=== PATIENT | male | born 1935 | race Caucasian/White ===

== ENCOUNTER 2023-04-23 10:42 | Emergency (ER) | payer MEDICARE, MEDICAID, SELFPAY ==
[2023-04-23] VITALS (11 sets, daily range): BP systolic 106–173; BP diastolic 53–94; PULSE 53–74; RESP 15–18; TEMP 36.4; O2SAT 95–98; BMI 35.9
--- NOTE | 2023-04-23 10:44 | ECG_ITS ---
APPROVED REPORT Exam: Resting ECG HR:66 bpm ECG Measurements Heart Rate 66 AXES IL 193 P 66 QRSd 100 QRS -26 QT 396 T -10 QTc 409 Conclusion SINUS RHYTHM BORDERLINE LEFT AXIS DEVIATION [QRS AXIS < -20] BORDERLINE ECG UNCONFIRMED REPORT Electronically signed by : Morgan Lisa MD 04/24/2023 08:24:23
--- NOTE | 2023-04-23 10:57 | CT_ITS ---
PROCEDURE INFORMATION: Exam: CTA Chest With Contrast Exam date and time: 04/23/2023 1:02 PM Age: 87 years old Clinical indication: Pain; Chest pressure; Additional info: Tearing chest pain to abd TECHNIQUE: Imaging protocol: Computed tomographic angiography of the chest with contrast. Exam focused on the arteries. 3D rendering (Not supervised by radiologist): MIP and/or 3D reconstructed images were created by the technologist. Radiation optimization: All CT scans at this facility use at least one of these dose optimization techniques: automated exposure control; mA and/or kV adjustment per patient size (includes targeted exams where dose is matched to clinical indication); or iterative reconstruction. Contrast material: ISOVUE; Contrast volume: 100 ml; Contrast route: INTRAVENOUS (IV); REPORTING DATA: Count of CT and Cardiac NM exams in prior 12 months: This patient has received 0 known CTs and 0 known cardiac nuclear medicine studies in the 12 months prior to the current study. COMPARISON: CT ANGIO ABDOMEN PELVIS 04/23/2023 1:02 PM FINDINGS: Pulmonary arteries: There is suboptimal opacification of pulmonary arteries due to contrast bolus timing. Aorta: Regions of atherosclerotic vascular calcification involving the aortic arch. 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 Lungs: Bibasilar atelectasis versus parenchymal scarring. Pleural spaces: Unremarkable. No pneumothorax. No pleural effusion. Heart: Unremarkable. No cardiomegaly. No pericardial effusion. Coronary arteries: Coronary artery calcification Lymph nodes: Unremarkable. No enlarged lymph nodes. Bones/joints: Thoracic spondylosis. Soft tissues: Unremarkable. IMPRESSION: 1. 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 2. No large or central pulmonary embolus. Evaluation of the peripheral pulmonary arteries is limited. 3. Bibasilar atelectasis versus parenchymal scarring.
--- NOTE | 2023-04-23 10:57 | CT_ITS ---
PROCEDURE INFORMATION: Exam: CTA Abdomen and Pelvis With Contrast Exam date and time: 04/23/2023 1:02 PM Age: 87 years old Clinical indication: Abdominal pain; Generalized; Additional info: Tearing pain abdomen suprapubic TECHNIQUE: Imaging protocol: Computed tomographic angiography of the abdomen and pelvis with contrast. Exam focused on the arteries. 3D rendering (Not supervised by radiologist): MIP and/or 3D reconstructed images were created by the technologist. Radiation optimization: All CT scans at this facility use at least one of these dose optimization techniques: automated exposure control; mA and/or kV adjustment per patient size (includes targeted exams where dose is matched to clinical indication); or iterative reconstruction. Contrast material: ISOVUE; Contrast volume: 100 ml; Contrast route: INTRAVENOUS (IV); REPORTING DATA: Count of CT and Cardiac NM exams in prior 12 months: This patient has received 0 known CTs and 0 known cardiac nuclear medicine studies in the 12 months prior to the current study. COMPARISON: CT ANGIO CHEST 04/23/2023 1:02 PM FINDINGS: Aorta: Scattered regions of atherosclerotic vascular calcification within the abdominal aorta and common iliac arteries. Celiac trunk and mesenteric arteries: No occlusion or significant stenosis. Renal arteries: No occlusion or significant stenosis. Right iliac arteries: No occlusion or significant stenosis. Left iliac arteries: No occlusion or significant stenosis. Liver: No mass. Gallbladder and bile ducts: Gallbladder unremarkable Pancreas: Unremarkable. No mass. No ductal dilation. Spleen: The spleen is unremarkable. Adrenal glands: Adrenal glands unremarkable. Kidneys and ureters: Bilateral renal cysts left-sided peripelvic cyst versus extrarenal pelvis Stomach and bowel: Colonic diverticulosis. No evidence of diverticulitis. Moderate stool burden Appendix: Appendix unremarkable Intraperitoneal space: Unremarkable. No free air. No significant fluid collection. Lymph nodes: Unremarkable. No enlarged lymph nodes. Urinary bladder: Unremarkable. No mass. Reproductive: Unremarkable as visualized. Bones/joints: Lumbar spondylosis. Soft tissues: Pancreas unremarkable Fat filled umbilical hernia. Fat filled inguinal hernias. IMPRESSION: No evidence of acute abnormality.
--- NOTE | 2023-04-23 10:59 | HMH.EDGENADL ---
Discharge Plan Disposition Patient Disposition: Home, Self-Care Prescriptions Prescriptions: New cefdinir 300 mg capsule 300 mg PO BID 10 Days Qty: 20 0RF Referrals Follow up/Referrals: Provider,Referral, MD [Primary Care Provider] - See instructions Activity Restrictions/Add. Instructions Additional Instructions/Restrictions: At this time it was felt you are safe to be discharged home. If new or worsening symptoms please do not hesitate to return the emergency department. Please follow-up with your family doctor for continued surveillance of your dilated aorta (large heart vessel). Please take antibiotics as prescribed. Clinical Impressions Clinical Impression: Constipation, Acute UTI, Chest pain, Aortic aneurysm Discharge ED Provider: Teodoro Savage General Adult HPI General Chief complaint: Weakness Stated complaint: weakness Time Seen by Provider: 04/23/23 10:50 Mode of Arrival: EMS Source of Information: EMS Limitations: No Limitations Description of Symptoms (Recalled from ER Triage Doc. by RN): 87 yo M presents to ED from [facility]. EMS staff reports trouble urinating, weakness and pain all over. 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 Patient states that for the last 2 weeks he has had suprapubic abdominal pain that is tearing in nature that has since ascended into his chest. There is associated dysuria. Due to persistent symptoms he presents here for continued evaluation. Patient also was diagnosed with shingles approximately 1 month ago for which she has been following with ophthalmology and taken medicines. Related Data Previous Rx's Medication Instructions Recorded cefdinir 300 mg capsule 300 mg PO BID 10 days #20 caps 04/23/23 Allergies Allergy/AdvReac Type Severity Reaction Status Date / Time No Known Allergies Allergy Verified 04/23/23 11:15 [facility] Disclaimer: The information contained in this section may have been updated after the patient was seen, as this information can be updated by other users. Social History Smoking Status: Former smoker alcohol intake: never current occupational status: other Travel in the last 8 weeks: None ROS Obtained: Yes Systems reviewed as appropriate & no additional complaints except as documented Physical Exam General General appearance: alert and in no apparent distress Head Head exam: atraumatic and normocephalic Eye Eye exam: Present PERRL, EOMI and conjunctival injection (Left) ENT ENT exam: Present mucous membranes moist Neck Neck exam: Present normal inspection Chest Chest inspection: Present normal inspection and symmetric chest wall rise Respiratory Respiratory exam: Present normal lung sounds bilaterally; Absent respiratory distress Cardiovascular Cardiovascular exam: Present regular rate and normal rhythm Abdominal Exam Abdominal exam: Present soft and tenderness (Suprapubic) Extremities Exam Extremities exam: Present normal inspection Neurological Exam Neurological exam: Present alert and other (5 out of 5 strength bilateral upper and lower extremities.) Psychiatric Psychiatric exam: Present normal affect Skin Skin exam: Present warm and dry Medical Decision Making Trevor Inquiry Pt receiving controlled substance: No Vital Signs: 04/23/23 10:43 04/23/23 11:00 04/23/23 11:31 Temperature 97.6 F Temperature Source Oral Pulse Rate 68 61 Pulse Rate [Left Radial] 66 Respiratory Rate 17 18 Blood Pressure 106/57 L 121/70 Blood Pressure [Right Arm] 108/53 L Blood Pressure Mean 67 Blood Pressure Mean [Right Arm] 71 02 Sat by Pulse Oximetry 95 95 95 Oxygen Delivery Method Room Air 04/23/23 12:05 04/23/23 13:32 04/23/23 14:02
[2023-04-23 11:05] LABS: Microscopic, Urine URINE MICROSCOPIC (MICROSCOPIC)
[2023-04-23 11:06] LABS: Appearance,Urine CLEAR (Clear); Bilirubin,Urine Negative (Negative); Blood, Urine 3+ (Negative); Color,Urine YELLOW (Yellow); Glucose,Urine (UA) Negative (Negative); Ketones,Urine Negative (Negative); Leukocyte Esterase,Urine 1+ (Negative); Nitrate,Urine POSITIVE (Negative); Protein,Urine TRACE (Negative); Specific Gravity, Urine 1.015 (1.005-1.030); Urobilinogen,Urine 0.2 EU/dl (0.2)
[2023-04-23 11:17] LABS: Basophils % 0.4 % (0.1-2.0); Eosinophils # 0.3 K/mm3 (0.0-0.4); Eosinophils % 3.2 % (0.1-12.0); Hemoglobin 14.1 g/dL (14.1-18.0); Lymphocytes # 1.7 K/mm3 (0.7-4.5); Lymphocytes % 19.6 % (10-50); Mean Corpuscular HGB Conc 32.7 g/dL (31.8-35.4); Mean Corpuscular Hemoglobin 32.4 pg (27.0-31.2); Mean Corpuscular Volume 99.2 fl (80-94); Mean Platelet Volume 7.7 fl (7.4-10.4); Monocytes # 0.4 K/mm3 (0.1-1.0); Monocytes % 4.6 % (1.7-9.3); Neutrophils # 6.2 K/mm3 (1.8-7.8); Neutrophils % 72.1 % (37.0-80.0); Platelet Count 184 K/mm3 (142-424); Red Blood Count 4.34 M/mm3 (4.60-6.20); Red Cell Distribution Width 13.3 % (11.5-17.5); White Blood Count 8.5 K/mm3 (4.8-10.8)
[2023-04-23 11:18] LABS: Bacteria,Urine 1+ /lpf; Squamous Epithelial Cell,Urine Occasional #/hpf (0-5)
[2023-04-23 11:25] LABS: Chloride 107 mmol/L (98-107); Potassium 4.5 mmoL/L (3.5-5.1); Sodium 140 mmol/L (136-145)
[2023-04-23 11:28] LABS: Alanine Aminotransferase 26 U/L (12-78); Albumin Level 3.8 g/dl (3.5-5.0); Albumin/Globulin Ratio 1.2 (1.1-1.8); Alkaline Phosphatase 89 U/L (38-126); Anion Gap 8.5 mEq/L (5-15); Aspartate Amino Transferase 27 U/L (17-59); Bilirubin,Total 0.6 mg/dl (0.2-1.3); Blood Urea Nitrogen 41 mg/dl (9-20); Calcium 9.1 mg/dl (8.4-10.2); Carbon Dioxide 29 mmol/L (22.0-30.0); Creatinine Clearance Estimated 50 mL/min (50-200); Estimated Glomerular Filt Rate 38 ml/min (>60); GFR (African American) 46 ML/MIN (>60); Globulin 3.1 g/dL (1.3-3.2); Glucose 176 mg/dl (74-100); Total Protein,Serum 6.9 g/dl (6.3-8.2)
[2023-04-23 11:29] LABS: Lipase 243 U/L (23-300); Magnesium 2.1 mg/dl (1.6-2.3)
[2023-04-23 11:42] LABS: Troponin I 0.01 ng/ml (0.00-0.034)
[2023-04-23 12:40] LABS: Coronavirus 19, PCR Not Detected (NotDetected); Influenza A, PCR Not Detected (NotDetected); Influenza B, PCR Not Detected (NotDetected)
--- NOTE | 2023-04-23 13:00 | PC.NURSE ---
Pt to CT
--- NOTE | 2023-04-23 13:02 | PC.NURSE ---
Assumed care of patient at this time.
--- NOTE | 2023-04-23 13:24 | PC.NURSE ---
Patient back from CT. Rounded on patient with Anjum FRENCH. Patient in soiled brief and linens. Cleaned patient; new linens and brief applied as well as a male purwick. Patient had a large piece of stool at the rectum that was removed and tatianna area cleaned. Patient stated he has been constipated and has been trying to have a BM for 3 days with no relief. Patient states he feels much better now. Patient readjusted in the bed for comfort.
--- NOTE | 2023-04-23 13:34 | PC.NURSE ---
PT WAS GIVEN A BED BATH ASSISTED BY DARION(RN)WHICH SHE HAD TO DIG SOME BM FROM PT BUTT WERE HE WAS CONSTIPATED PT STATED TO US HE TRIED TO USE RESTROOM FOR THREE DAYS, SHEETS CHANGED NEW DRAW SHEET PLACE WITH CHUCKS AND BRIEF. A MALE PUREWICK WAS PLACED BC PT IS INCONTINENT WORKING GREAT AT THIS TIME, NEW GOWN PUT ON AND WARM BLANKET WAS GIVEN NO OTHER COMPLAINTS AT THIS TIME,CALL LIGHT AT BS
--- NOTE | 2023-04-23 14:08 | PC.NURSE ---
Rounded on patient; call light within reach. Obtained 2nd Troponin and sent to lab
[2023-04-23 14:38] LABS: Troponin I < 0.01 ng/ml (0.00-0.034)
--- NOTE | 2023-04-23 14:57 | PC.NURSE ---
Rounded on patient; call light within reach of patient.
--- NOTE | 2023-04-23 15:30 | PC.NURSE ---
Pt to CT
== END 2023-04-23 16:45 | disposition home or self-care (01) ==
PROVIDERS: Emergency Provider Emergency Medicine
DX: R10.30 Lower abdominal pain, unspecified (principal); N39.0 Urinary tract infection, site not specified; B96.4 Proteus (mirabilis) (morganii) as the cause of diseases classified elsewhere; R07.9 Chest pain, unspecified; K59.00 Constipation, unspecified; I71.9 Aortic aneurysm of unspecified site, without rupture; I25.10 Atherosclerotic heart disease of native coronary artery without angina pectoris; E11.9 Type 2 diabetes mellitus without complications; R53.1 Weakness; I11.9 Hypertensive heart disease without heart failure
CPT/HCPCS: 71275; 74174; 80053; 81001; 83690; 83735; 84484; 85025; 87086; 87636; 93005; 96365; 99285; J0696; Q9967

== ENCOUNTER 2023-12-11 14:14 | Observation (INO) | payer MEDICARE, MEDICAID, SELFPAY ==
[2023-12-11] VITALS (10 sets, daily range): BP systolic 99–108; BP diastolic 48–68; PULSE 55–69; RESP 15–19; TEMP 36.4–36.7; O2SAT 92–98; BMI 46.0; BMI 30.5
--- NOTE | 2023-12-11 14:00 | ECG_ITS ---
APPROVED REPORT Exam: Resting ECG HR:62 bpm ECG Measurements Heart Rate 62 AXES ID 197 P 55 QRSd 100 QRS -20 QT 433 T -37 QTc 439 Conclusion SINUS RHYTHM WITH OCCASIONAL SUPRAVENTRICULAR PREMATURE COMPLEXES MODERATE VOLTAGE CRITERIA FOR LVH Inferior STTW changes are old ABNORMAL ECG UNCONFIRMED REPORT Electronically signed by : Morgan Lisa MD 12/13/2023 07:11:39
--- NOTE | 2023-12-11 14:22 | PC.NURSE ---
IV 20 right fa, labs sent.
--- NOTE | 2023-12-11 14:27 | ED_ITS ---
Discharge Plan Disposition Patient Disposition: Admitted Condition: Fair Clinical Impressions Clinical Impression: Acute nontraumatic kidney injury Acute pancreatitis Qualifiers: Pancreatitis type: unspecified pancreatitis type Acute pancreatitis complication: unspecified Qualified Code(s): K85.90 - Acute pancreatitis without necrosis or infection, unspecified Discharge ED Provider: Teodoro Savage General Adult HPI <ESTEFANI Paredes - Last Filed: 12/11/23 17:17> General Chief complaint: Chest Pain Stated complaint: chest pain Time Seen by Provider: 12/11/23 14:26 History of Present Illness HPI narrative: Patient presents for evaluation of chest pain. Patient is a difficult historian and I am unsure of what his neurologic baseline is but apparently has frequent bouts of chest pain and usually treated with nitroglycerin however [facility]. Patient is unable to provide much more history and whether or not he is having chest pain currently. He denies headache fever chills hemoptysis hematochezia melena nausea vomiting diarrhea.. Related Data Previous Rx's Medication Instructions Recorded cefdinir 300 mg capsule 300 mg PO BID 10 days #20 caps 04/23/23 Allergies Allergy/AdvReac Type Severity Reaction Status Date / Time No Known Allergies Allergy Verified 04/23/23 11:15 [facility] <ESTEFANI Paredes - Last Filed: 12/11/23 17:17> [facility] Disclaimer: The information contained in this section may have been updated after the patient was seen, as this information can be updated by other users. Social History (Updated 04/23/23 @ 15:17 by Teodoro Savage MD) Smoking Status: Former smoker alcohol intake: never current occupational status: other Travel in the last 8 weeks: None <ESTEFANI Paredes - Last Filed: 12/11/23 17:17> ROS Obtained: Yes Systems reviewed as appropriate & no additional complaints except as documented Physical Exam <ESTEFANI Paredes - Last Filed: 12/11/23 17:17> General General appearance: in no apparent distress Head Head exam: atraumatic and normal inspection Eye Eye exam: Absent normal appearance (Patient has eyelid conjunctivitis of the left eye but not of the bulbar Activa) ENT ENT exam: Present normal exam, normal oropharynx and mucous membranes moist Neck Neck exam: Present normal inspection; Absent tenderness Chest Chest inspection: Present normal inspection and symmetric chest wall rise; Absent tenderness Respiratory Respiratory exam: Present normal lung sounds bilaterally; Absent respiratory distress, wheezes, stridor or accessory muscle use Cardiovascular Cardiovascular exam: Present regular rate, normal rhythm and normal heart sounds Abdominal Exam Abdominal exam: Present soft (Obese) and normal bowel sounds; Absent tenderness, guarding, rebound or rigidity Extremities Exam Extremities exam: Present normal inspection Back Exam Back exam: Present normal inspection Neurological Exam Neurological exam: Absent alert (Patient is somnolent but arousable but unable to provide a coherent history other than stating that he has chest pain) or oriented X3 (Do not know what the patient's functional baseline is but he is not oriented to place or circumstance and oriented only to self currently) Skin Skin exam: Present warm, dry and normal color Medical Decision Making <ESTEFANI Paredes - Last Filed: 12/11/23 17:17> Medical Records Medical records reviewed: Yes I reviewed the patient's medical records. Trevor Inquiry Pt receiving controlled substance: No Vital Signs: 12/11/23 14:08 12/11/23 14:14 12/11/23 14:30 Temperature 98.0 F Temperature Source Oral Pulse Rate 61 60 Pulse Rate [Apical] 69 Respiratory Rate 17 18 17 Blood Pressure 105/56 L 104/63 L Blood Pressure [Left Arm] 108/68 L Blood Pressure Mean [Left Arm] 81 Blood Pressure Source [Left Arm] Automatic Cuff Blood Pressure Position [Left Arm] Sitting 02 Sat by Pulse Oximetry 96 95 95 Oxygen Delivery Method Room Air Room Air Room Air 12/11/23 15:00 12/11/23 15:30 12/11/23 17:15 Temperature Temperature Source Pulse Rate 56 L 55 L 62 Pulse Rate [Apical] Respiratory Rate 15 18 16 Blood Pressure 103/62 L 108/61 L Blood Pressure [Left Arm] Blood Pressure Mean [Left Arm] Blood Pressure Source [Left Arm] Blood Pressure Position [Left Arm] 02 Sat by Pulse Oximetry 98 92 L 95 Oxygen Delivery Method Room Air Room Air Lab Data Lab results reviewed: Yes I reviewed the patient's lab results. Lab Results 12/11/23 14:08: WBC 9.6, RBC 3.89 L, Hgb 12.9 L, Hct 38.5 L, MCV 99.1 H, MCH 33.2 H, MCHC 33.4, RDW 13.9, Plt Count 275, MPV 8.2, Neut % (Auto) 78.4, Lymph % (Auto) 14.4, [place] % (Auto) 3.9, Eos % (Auto) 2.7, Baso % (Auto) 0.5, Neut # (Auto) 7.6, Lymph # (Auto) 1.4, [place] # (Auto) 0.4, Eos # (Auto) 0.3, Baso # (Auto) 0.1, PT 10.7, INR 0.95, Sodium 136, Potassium 4.3, Chloride 98, Carbon Dioxide 29, Anion Gap 13.3, BUN 95 H, Creatinine 2.60 H, Estimated Creat Clear 18, Estimated GFR 23 L, Est GFR ( Amer) 28 L, Glucose 163 H, Calcium 9.8, Magnesium 2.1, Total Bilirubin 0.5, AST 22, ALT 16, Alkaline Phosphatase 87, Troponin I < 0.01, NT-Pro-B Natriuret Pep 806 H, Total Protein 7.8, Albumin 4.0, Globulin 3.8 H, Albumin/Globulin Ratio 1.1, Lipase 417 H 12/11/23 14:08 12/11/23 14:08 Orders (Tests/Meds): ED MEDICATIONS Discontinued Medications Generic Name Dose Route Start Last Admin Trade Name Freq PRN Reason Stop Dose Admin Acetaminophen 1,000 mg 12/11/23 14:31 12/11/23 15:08 Acetaminophen 1,000mg/100ml Vial IV 12/11/23 14:32 1,000 mg ONCE ONE Administration Belladonna Alkaloids 60 ml 12/11/23 14:31 12/11/23 15:08 Belladonna Alkaloids 60 Ml Ml PO 12/11/23 14:32 60 ml ONCE ONE Administration Sodium Chloride 500 mls @ 999 mls/hr 12/11/23 14:31 12/11/23 15:09 Sod Chlor 0.9% 1000ml Bag IV 12/11/23 15:01 999 mls/hr .Q31M ONE Administration Ondansetron HCl 4 mg 12/11/23 14:31 12/11/23 15:08 Ondansetron 4mg/2ml Vial IV 12/11/23 14:32 4 mg ONCE ONE Administration ORDERS Category Date Time Status CT abdomen pelvis wo con Stat Cat Scan 12/11/23 14:[address] chest wo con Stat Cat Scan 12/11/23 14:31 Completed BNP [NT Pro Brain Natriuretic Pep.] Stat Lab 12/11/23 14:08 Completed CBC w/Auto Diff [Complete Blood Count Auto Diff] Stat Lab 12/11/23 14:08 Completed CMP [Comprehensive Metabolic Panel] Stat Lab 12/11/23 14:08 Completed INR [Prothrombin Time INR] Stat Lab 12/11/23 14:08 Completed Lipase Stat Lab 12/11/23 14:08 Completed Magnesium Stat Lab 12/11/23 14:08 Completed Trop I [Troponin I] Stat Lab 12/11/23 14:08 Completed Troponin I Q3H Lab 12/11/23 17:45 Ordered Troponin I Q3H Lab 12/11/23 20:45 Ordered UA [Urinalysis and Microscopic] Stat Lab 12/11/23 14:31 Ordered HEART Score History (anamnesis): Slightly suspicious ECG: Non-specific disturbance Age: >65 years Risk factors: Atherosclerosis history Troponin: </= normal limit HEART Score: 5 Medical Decision Narrative: In summary patient is a 88-year-old male who presents to the emergency department for evaluation of chest pain/epigastric pain. Patient is hemodynamically stable with a blood pressure of 108/68 with a pulse of 69 sat of 95% breathing 18 times a minute upon arrival, afebrile. Physical exam shows a somnolent but arousable but not oriented 88-year-old gentleman who otherwise does not appear to be in acute distress. He breath sounds are normal heart sounds are normal patient points to the epigastrium where his chest pain is located but he has no pain on palpation of same.. Differential diagnosis includes ACS versus gastritis versus ulcer versus pancreatitis versus constipation etc. Initial workup will be conducted with hematologic labs CT scan chest abdomen pelvis, urinalysis. Initial interventions include crystalloid bolus Tylenol GI cocktail. Initial workup reviewed by me shows that he has an elevated lipase worsening renal function on top of chronic kidney disease and my informal interpretation of his CT scan abdomen pelvis shows a dilated gallbladder but no evidence of biliary ductal dilatation or stones and no peripancreatic stranding or fluid. Given this I had an interactive discussion with hospital medicine who is agreed for admission for further evaluation and care <Teodoro Savage MD - Last Filed: 12/11/23 18:02> Vital Signs: 12/11/23 14:08 12/11/23 14:14 12/11/23 14:30 Temperature 98.0 F Temperature Source Oral Pulse Rate 61 60 Pulse Rate [Apical] 69 Respiratory Rate 17 18 17 Blood Pressure 105/56 L 104/63 L Blood Pressure [Left Arm] 108/68 L Blood Pressure Mean [Left Arm] 81 Blood Pressure Source [Left Arm] Automatic Cuff Blood Pressure Position [Left Arm] Sitting 02 Sat by Pulse Oximetry 96 95 95 Oxygen Delivery Method Room Air Room Air Room Air 12/11/23 15:00 12/11/23 15:30 12/11/23 17:15 Temperature Temperature Source Pulse Rate 56 L 55 L 62 Pulse Rate [Apical] Respiratory Rate 15 18 16 Blood Pressure 103/62 L 108/61 L Blood Pressure [Left Arm] Blood Pressure Mean [Left Arm] Blood Pressure Source [Left Arm] Blood Pressure Position [Left Arm] 02 Sat by Pulse Oximetry 98 92 L 95 Oxygen Delivery Method Room Air Room Air Lab Data Lab Results 12/11/23 14:08: WBC 9.6, RBC 3.89 L, Hgb 12.9 L, Hct 38.5 L, MCV 99.1 H, MCH 33.2 H, MCHC 33.4, RDW 13.9, Plt Count 275, MPV 8.2, Neut % (Auto) 78.4, Lymph % (Auto) 14.4, [place] % (Auto) 3.9, Eos % (Auto) 2.7, Baso % (Auto) 0.5, Neut # (Auto) 7.6, Lymph # (Auto) 1.4, [place] # (Auto) 0.4, Eos # (Auto) 0.3, Baso # (Auto) 0.1, PT 10.7, INR 0.95, Sodium 136, Potassium 4.3, Chloride 98, Carbon Dioxide 29, Anion Gap 13.3, BUN 95 H, Creatinine 2.60 H, Estimated Creat Clear 18, Estimated GFR 23 L, Est GFR ( Amer) 28 L, Glucose 163 H, Calcium 9.8, Magnesium 2.1, Total Bilirubin 0.5, AST 22, ALT 16, Alkaline Phosphatase 87, Troponin I < 0.01, NT-Pro-B Natriuret Pep 806 H, Total Protein 7.8, Albumin 4.0, Globulin 3.8 H, Albumin/Globulin Ratio 1.1, Lipase 417 H Orders (Tests/Meds): ED MEDICATIONS Discontinued Medications Generic Name Dose Route Start Last Admin Trade Name Mendez PRN Reason Stop Dose Admin Acetaminophen 1,000 mg 12/11/23 14:31 12/11/23 15:08 Acetaminophen 1,000mg/100ml Vial IV 12/11/23 14:32 1,000 mg ONCE ONE Administration Belladonna Alkaloids 60 ml 12/11/23 14:31 12/11/23 15:08 Belladonna Alkaloids 60 Ml Ml PO 12/11/23 14:32 60 ml ONCE ONE Administration Sodium Chloride 500 mls @ 999 mls/hr 12/11/23 14:31 12/11/23 15:09 Sod Chlor 0.9% 1000ml Bag IV 12/11/23 15:01 999 mls/hr .Q31M ONE Administration Ondansetron HCl 4 mg 12/11/23 14:31 12/11/23 15:08 Ondansetron 4mg/2ml Vial IV 12/11/23 14:32 4 mg ONCE ONE Administration ORDERS Category Date Time Status CT abdomen pelvis wo con Stat Cat Scan 12/11/23 14:[address] chest wo con Stat Cat Scan 12/11/23 14:31 Completed BNP [NT Pro Brain Natriuretic Pep.] Stat Lab 12/11/23 14:08 Completed CBC w/Auto Diff [Complete Blood Count Auto Diff] Stat Lab 12/11/23 14:08 Completed CMP [Comprehensive Metabolic Panel] Stat Lab 12/11/23 14:08 Completed INR [Prothrombin Time INR] Stat Lab 12/11/23 14:08 Completed Lipase Stat Lab 12/11/23 14:08 Completed Magnesium Stat Lab 12/11/23 14:08 Completed Trop I [Troponin I] Stat Lab 12/11/23 14:08 Completed Troponin I Q3H Lab 12/11/23 17:45 Ordered Troponin I Q3H Lab 12/11/23 20:45 Ordered UA [Urinalysis and Microscopic] Stat Lab 12/11/23 14:31 Ordered ECG Data Tracing #1: Independently interpreted by me rate is 62, rhythm is regular with occasional supraventricular premature complexes, axis is normal, no ST elevation in anatomical contiguous leads, QTc 439 HEART Score HEART Score: 5 Medical Decision Narrative: In summary patient is a 88-year-old male who presents to the emergency department for evaluation of chest pain/epigastric pain. Patient is hemodynamically stable with a blood pressure of 108/68 with a pulse of 69 sat of 95% breathing 18 times a minute upon arrival, afebrile. Physical exam shows a somnolent but arousable but not oriented 88-year-old gentleman who otherwise does not appear to be in acute distress. He breath sounds are normal heart sounds are normal patient points to the epigastrium where his chest pain is located but he has no pain on palpation of same.. Differential diagnosis includes ACS versus gastritis versus ulcer versus pancreatitis versus constipation etc. Initial workup will be conducted with hematologic labs CT scan chest abdomen pelvis, urinalysis. Initial interventions include crystalloid bolus Tylenol GI cocktail. Initial workup reviewed by me shows that he has an elevated lipase worsening renal function on top of chronic kidney disease and my informal interpretation of his CT scan abdomen pelvis shows a dilated gallbladder but no evidence of biliary ductal dilatation or stones and no peripancreatic stranding or fluid. Given this I had an interactive discussion with hospital medicine who is agreed for admission for further evaluation and care. I was consulted by the [facility], and we discussed the complexity of the problems being addressed. I approved the treatment and management plan for this patient's care in the emergency department, thus performing a substantive portion of the medical decision making. Teodoro Savage MD Critical Care <ESTEFANI Paredes - Last Filed: 12/11/23 17:17> Critical Care Time Critical Care Time: No
--- NOTE | 2023-12-11 14:31 | CT_ITS ---
FINAL REPORT TECHNIQUE: Thin section axial images were obtained from the lung bases to the pubic symphysis without IV contrast. Coronal and sagittal reconstruction images were obtained from the axial data. Exam was performed using dose reduction technique. CLINICAL HISTORY: Epigastric pain COMPARISON: None FINDINGS: There are no renal or ureteral stones. There is no hydronephrosis or perinephric stranding. There are bilateral hypodense renal lesions, that have an appearance most compatible with renal cysts. The gallbladder is present. The remaining unenhanced solid abdominal organs are unremarkable. There is no evidence of small bowel obstruction. The appendix is normal. GI tract is without acute abnormality. No evidence of diverticulitis is seen. There is no lymphadenopathy or ascites. There is wall thickening of the urinary bladder with abnormal attenuation around the prostate and bladder, and prostatitis/cystitis are not excluded. No acute osseous abnormality is identified. IMPRESSION: No renal or ureteral stones. No hydronephrosis. Wall thickening of the urinary bladder with abnormal attenuation around the prostate and bladder, cystitis/prostatitis are not excluded. Reviewed, Interpreted and Dictated by Joseline Gaona MD Transcribed by Anastasia Ervin Authenticated and [facility]
--- NOTE | 2023-12-11 14:31 | CT_ITS ---
FINAL REPORT TECHNIQUE: Thin section axial images were obtained from the lung apices through the upper abdomen without contrast. This study was performed with techniques to keep radiation doses as low as reasonably achievable (ALARA). Individualized dose reduction techniques using automated exposure control or adjustment of mA and/or kV according to the patient's size were employed. CLINICAL HISTORY: Epigastric pain/chest pain COMPARISON: 04/23/2023 FINDINGS: The ascending thoracic aorta measures 4.4 cm in diameter, was previously 4.3 cm in diameter, unchanged. Prominent coronary artery calcifications are once again identified. There is no mediastinal, hilar, or axillary lymphadenopathy. No pleural or pericardial effusion. Lower lobe atelectasis is identified. No pulmonary nodules are seen. There are likely secretions and/or mucus in the trachea and the right and left mainstem bronchi, of uncertain etiology.. Limited, unenhanced evaluation of the upper abdomen is without acute abnormality. There is no acute osseous abnormality. IMPRESSION: Ascending thoracic aortic aneurysm, stable in appearance since the prior CT of March 2023. Likely secretions and/or mucus in the trachea and right and left mainstem bronchi, a finding of uncertain etiology.. Reviewed, Interpreted and Dictated by Joseline Gaona MD Transcribed by Anastasia Ervin [facility]henticated and [facility]
[2023-12-11 14:39] LABS: Chloride 98 mmol/L (98-107); Potassium 4.3 mmoL/L (3.5-5.1); Sodium 136 mmol/L (136-145)
[2023-12-11 14:41] LABS: Alanine Aminotransferase 16 U/L (12-78); Aspartate Amino Transferase 22 U/L (17-59); Basophils # 0.1 K/mm3 (0-0.2); Basophils % 0.5 % (0.1-2.0); Eosinophils # 0.3 K/mm3 (0.0-0.4); Eosinophils % 2.7 % (0.1-12.0); Estimated Glomerular Filt Rate 23 ml/min (>60); GFR (African American) 28 ML/MIN (>60); Hematocrit 38.5 % (42.0-52.0); Hemoglobin 12.9 g/dL (14.1-18.0); Lymphocytes # 1.4 K/mm3 (0.7-4.5); Lymphocytes % 14.4 % (10-50); Mean Corpuscular HGB Conc 33.4 g/dL (31.8-35.4); Mean Corpuscular Hemoglobin 33.2 pg (27.0-31.2); Mean Corpuscular Volume 99.1 fl (80-94); Mean Platelet Volume 8.2 fl (7.4-10.4); Monocytes # 0.4 K/mm3 (0.1-1.0); Monocytes % 3.9 % (1.7-9.3); Neutrophils # 7.6 K/mm3 (1.8-7.8); Neutrophils % 78.4 % (37.0-80.0); Platelet Count 275 K/mm3 (142-424); Red Blood Count 3.89 M/mm3 (4.60-6.20); Red Cell Distribution Width 13.9 % (11.5-17.5); White Blood Count 9.6 K/mm3 (4.8-10.8)
[2023-12-11 14:42] LABS: Albumin/Globulin Ratio 1.1 (1.1-1.8); Alkaline Phosphatase 87 U/L (38-126); Anion Gap 13.3 mEq/L (5-15); Bilirubin,Total 0.5 mg/dl (0.2-1.3); Calcium 9.8 mg/dl (8.4-10.2); Carbon Dioxide 29 mmol/L (22.0-30.0); Globulin 3.8 g/dL (1.3-3.2); Glucose 163 mg/dl (74-100); Lipase 417 U/L (23-300); Total Protein,Serum 7.8 g/dl (6.3-8.2)
[2023-12-11 14:43] LABS: Magnesium 2.1 mg/dl (1.6-2.3)
[2023-12-11 14:52] LABS: NT Pro Brain Natriuretic Pep. 806 pg/mL (0-450)
[2023-12-11 14:54] LABS: INR 0.95 (0.9-1.1); Prothrombin Time 10.7 seconds (10.1-12.5)
[2023-12-11 14:56] LABS: Creatinine Clearance Estimated 18 mL/min (50-200); Troponin I < 0.01 ng/ml (0.00-0.034)
[2023-12-11 14:57] LABS: Blood Urea Nitrogen 95 mg/dl (9-20)
[2023-12-11] MEDS: ACETAMINOPHEN 1,000MG/100ML VIAL 1000 MG IV (15:08)
[2023-12-11] MEDS: ONDANSETRON 4MG/2ML VIAL 4 MG IV (15:08)
[2023-12-11] MEDS: BELLADONNA ALKALOIDS 60 ML ML PO (15:08)
[2023-12-11] MEDS: 0.9 % SODIUM CHLORIDE 1000ML 500 ML 999 ML IV (15:09)
--- NOTE | 2023-12-11 17:26 | PC.NURSE ---
[employer] NOTIFIED OF ADMISSION
--- NOTE | 2023-12-11 17:37 | PC.NURSE ---
ATTEMPTED TO CALL REPORT, NURSE WILL CALL BACK
--- NOTE | 2023-12-11 18:09 | PC.NURSE ---
REPORT CALLED TO MARCIA RDZ
--- NOTE | 2023-12-11 18:26 | PC.NURSE ---
patient arrived by stretcher from [facility].
--- NOTE | 2023-12-11 18:48 | PC.WOUNDNOTE ---
Ecchymomosis noted under abdominal folds and in groin area
--- NOTE | 2023-12-11 18:49 | PC.WOUNDNOTE ---
ecchymosis noted under right breast
--- NOTE | 2023-12-11 18:49 | PC.WOUNDNOTE ---
ecchymosis under right axilla
--- NOTE | 2023-12-11 18:50 | PC.WOUNDNOTE ---
ecchymosis noted under left axilla
--- NOTE | 2023-12-11 18:52 | PC.WOUNDNOTE ---
ecchymosis noted to RLE erythema noted under abdominal fold and in groin area
--- NOTE | 2023-12-11 18:53 | PC.WOUNDNOTE ---
erythema noted under right breast
--- NOTE | 2023-12-11 18:53 | PC.WOUNDNOTE ---
erythema noted under right axilla erythema left axilla
[2023-12-11 18:55] LABS: Troponin I 0.01 ng/ml (0.00-0.034)
--- NOTE | 2023-12-11 20:15 | P.HP_ITS ---
History of Present Illness *Admission Date: 12/11/23 *Reason for visit:: Chest pain, hypotension *History of present illness: Patient presents from [facility] with hypotension and chest pain. Per residential records patient consistently complains of chest discomfort, and given as needed nitroglycerin. [facility] noted low blood pressure, so concerned about giving nitroglycerin. Patient subsequently sent to emergency room for evaluation. Patient extremely poor historian, and only able to tell Dr. Brooks chest pain substernal, 6 out of 10, intermittent. Denies fevers, chills, abdominal pain, bowel sick contacts, diarrhea, constipation. Patient's lactic acid 417 in emergency room. [facility] paperwork shows patient is DNR/DNI at baseline. [facility] Disclaimer: The information contained in this section may have been updated after the patient was seen, as this information can be updated by other users. Medical History CKD (chronic kidney disease) GERD (gastroesophageal reflux disease) Hypertension Myasthenia gravis Insomnia Insomnia Hyperlipidemia Aortic aneurysm CHF (congestive heart failure) Obesity Dysphagia Diabetes mellitus, type 2 Family History (Updated 12/11/23 @ 19:05 by Judy Saba, RN) Other No significant family history Social History (Updated 12/11/23 @ 19:06 by Judy Saba, MARCIA) Smoking Status: Former smoker alcohol intake: never current occupational status: other Travel in the last 8 weeks: None Review of Systems Review of Systems Review of systems:: pertinent systems reviewed and negative unless documented below Constitutional Constitutional: Reports system reviewed and no additional complaints, except as documented Meds Home Medications and Allergies Home Medications Medication Instructions Recorded Confirmed Type cefdinir 300 mg capsule 300 mg PO BID 10 days #20 caps 04/23/23 Rx New Prescriptions to Start Prescriptions: Allergies Allergy/AdvReac Type Severity Reaction Status Date / Time No Known Allergies Allergy Verified 04/23/23 11:15 Exam Data for Last 24 hours Vital signs and Labs for Last 24 Hours: Temp Pulse Resp BP Pulse Ox O2 Del Method 97.7 F 56 L 16 99/55 L 96 Room Air 12/11/23 20:00 12/11/23 20:00 12/11/23 20:00 12/11/23 20:00 12/11/23 20:00 12/11/23 20:00 Laboratory Results - last 24 hr 12/11/23 14:08: WBC 9.6, RBC 3.89 L, Hgb 12.9 L, Hct 38.5 L, MCV 99.1 H, MCH 33.2 H, MCHC 33.4, RDW 13.9, Plt Count 275, MPV 8.2, Neut % (Auto) 78.4, Lymph % (Auto) 14.4, [place] % (Auto) 3.9, Eos % (Auto) 2.7, Baso % (Auto) 0.5, Neut # (Auto) 7.6, Lymph # (Auto) 1.4, [place] # (Auto) 0.4, Eos # (Auto) 0.3, Baso # (Auto) 0.1, PT 10.7, INR 0.95, Sodium 136, Potassium 4.3, Chloride 98, Carbon Dioxide 29, Anion Gap 13.3, BUN 95 H, Creatinine 2.60 H, Estimated Creat Clear 18, Estimated GFR 23 L, Est GFR ( Amer) 28 L, Glucose 163 H, Calcium 9.8, Magnesium 2.1, Total Bilirubin 0.5, AST 22, ALT 16, Alkaline Phosphatase 87, Troponin I < 0.01, NT-Pro-B Natriuret Pep 806 H, Total Protein 7.8, Albumin 4.0, Globulin 3.8 H, Albumin/Globulin Ratio 1.1, Lipase 417 H 12/11/23 18:14: Troponin I 0.01 I & O for Last 24 hours: Intake & Output 12/08/23 12/09/23 12/10/23 12/11/23 23:59 23:59 23:59 23:59 Output Total 0 / 0 Balance 0 / 0 Weight 86.268 kg Constitutional Constitutional: no acute distress *Routine HEENT Exam Head: Present normocephalic Eye: Present EOMI and normal accommodation ENT: Present mucous membranes moist *Routine Neck Exam Neck: Present supple and full ROM *Routine Respiratory Exam Respiratory: Present CTA bilaterally *Routine Cardiovascular Exam Cardiovascular: Present RRR and Normal S1 *Routine Abdominal Exam Abdominal: Present soft and normoactive bowel sounds *Routine Rectal Exam Rectal:: deferred *Routine Genitalia Exam Genitalia:: deferred *Routine Extremities Exam Extremities: Present normal capillary refill *Routine Skin Exam Skin: Present intact and warm *Routine Neurological Exam Neurological: Present alert and normal reflexes Assessment and Plan *Assessment and plan (1) Acute nontraumatic kidney injury: Status: Acute Category: Medical Code(s): N17.9 - Acute kidney failure, unspecified (2) Acute pancreatitis: Status: Acute Qualifiers: Acute pancreatitis complication: unspecified Pancreatitis type: unspecified pancreatitis type Qualified Code(s): K85.90 - Acute pancreatitis without necrosis or infection, unspecified Category: Medical Code(s): K85.90 - Acute pancreatitis without necrosis or infection, unspecified (3) Chest pain: Status: Acute Category: Medical Code(s): R07.9 - Chest pain, unspecified (4) Acute UTI: Status: Acute Category: Medical Code(s): N39.0 - Urinary tract infection, site not specified Plan 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 No signs of obstructive pancreatitis noted at time of admission. Will make patient n.p.o., maintenance IV fluids, follow-up lipase daily. Asymptomatic bradycardia: ? Will place patient on telemetry and watch during hospitalization. DRE secondary to dehydration: ? Slowly rehydrate patient given history of diastolic heart failure. Patient's BUNs/creatinine ratio greater than 20. Hypotension rule out sepsis: -Check procalcitonin/CRP at time of admission if elevated will consider starting IV antibiotics. Midodrine 5 mg p.o. 3 times daily x 6 doses. Cautious maintenance IV fluid hydration. Chronic chest pain: ? Patient usually given as needed nitroglycerin in residential. Will refrain from giving as needed nitro given hypotension. Consult cardiology for chest pain evaluation during hospitalization.
[2023-12-11 20:44] LABS: POC Glucose,Bedside 129 (70-110)
[2023-12-11] MEDS: HEPARIN SODIUM 5,000 UNIT/ML VIAL 5000 UNIT SQ (21:07)
[2023-12-11] MEDS: ACETAMINOPHEN 325MG TAB 650 MG PO (21:15)
[2023-12-11] MEDS: 0.9 % SODIUM CHLORIDE 1000ML 1,000 ML 100 ML IV (21:25)
[2023-12-11] MEDS: MIDODRINE HCL 5 MG TABLET PO (21:25)
[2023-12-11 22:39] LABS: Troponin I 0.01 ng/ml (0.00-0.034)
[2023-12-11 23:21] LABS: C-Reactive Protein 81.2 mg/L (0-4)
[2023-12-11 23:53] LABS: Troponin I 0.01 ng/ml (0.00-0.034)
[2023-12-12] VITALS: PULSE 56
[2023-12-12 02:45] LABS: POC Glucose,Bedside 138 (70-110)
[2023-12-12 04:00] VITALS: BP 117/48; PULSE 57; PULSE 59; RESP 18; TEMP 36.6; O2SAT 97; BMI 30.1
[2023-12-12] MEDS: HEPARIN SODIUM 5,000 UNIT/ML VIAL 5000 UNIT SQ ×3 (04:13→21:00)
--- NOTE | 2023-12-12 04:20 | PC.NURSE ---
Pt has been without acute changes through shift. He has complained of pain/discomfort to neck and chest area X 1 but relieved with Tylenol. He has remained slightly hypotensive. IVF started @ 100/hr. Pt has remained NPO. FSBS at 129 and 138 requiring no insulin coverage. urine obtained and sent to lab
[2023-12-12 04:36] LABS: Microscopic, Urine URINE MICROSCOPIC (MICROSCOPIC)
[2023-12-12 04:38] LABS: Appearance,Urine CLEAR (Clear); Bilirubin,Urine Negative (Negative); Blood, Urine TRACE-I (Negative); Color,Urine YELLOW (Yellow); Glucose,Urine (UA) 1+ (Negative); Ketones,Urine Negative (Negative); Leukocyte Esterase,Urine 2+ (Negative); Nitrate,Urine Negative (Negative); Protein,Urine TRACE (Negative); Specific Gravity, Urine 1.015 (1.005-1.030); Urobilinogen,Urine 0.2 EU/dl (0.2)
[2023-12-12 04:52] LABS: Bacteria,Urine 2+ /lpf; RBC,Urine Occasional #/hpf (0-3); Squamous Epithelial Cell,Urine Occasional #/hpf (0-5); WBC,Urine 50-100 #/hpf (0-3)
[2023-12-12] MEDS: 0.9 % SODIUM CHLORIDE 1000ML 1,000 ML 100 ML IV (06:04)
[2023-12-12 06:21] LABS: Basophils % 0.4 % (0.1-2.0); Eosinophils # 0.2 K/mm3 (0.0-0.4); Eosinophils % 2.4 % (0.1-12.0); Hematocrit 37.8 % (42.0-52.0); Hemoglobin 12.3 g/dL (14.1-18.0); Lymphocytes # 1.2 K/mm3 (0.7-4.5); Lymphocytes % 12.9 % (10-50); Mean Corpuscular HGB Conc 32.5 g/dL (31.8-35.4); Mean Corpuscular Volume 101.6 fl (80-94); Mean Platelet Volume 7.9 fl (7.4-10.4); Monocytes # 0.3 K/mm3 (0.1-1.0); Monocytes % 3.4 % (1.7-9.3); Neutrophils # 7.3 K/mm3 (1.8-7.8); Platelet Count 245 K/mm3 (142-424); Red Blood Count 3.72 M/mm3 (4.60-6.20); Red Cell Distribution Width 14.1 % (11.5-17.5)
[2023-12-12 06:49] LABS: Alanine Aminotransferase 11 U/L (12-78); Albumin Level 3.7 g/dl (3.5-5.0); Albumin/Globulin Ratio 1.1 (1.1-1.8); Alkaline Phosphatase 91 U/L (38-126); Anion Gap 11.5 mEq/L (5-15); Aspartate Amino Transferase 17 U/L (17-59); Bilirubin,Total 0.4 mg/dl (0.2-1.3); Calcium 9.5 mg/dl (8.4-10.2); Carbon Dioxide 29 mmol/L (22.0-30.0); Chloride 102 mmol/L (98-107); Creatinine Clearance Estimated 25 mL/min (50-200); Estimated Glomerular Filt Rate 25 ml/min (>60); GFR (African American) 30 ML/MIN (>60); Globulin 3.5 g/dL (1.3-3.2); Glucose 143 mg/dl (74-100); Magnesium 2.1 mg/dl (1.6-2.3); Potassium 3.5 mmoL/L (3.5-5.1); Sodium 139 mmol/L (136-145); Total Protein,Serum 7.2 g/dl (6.3-8.2)
[2023-12-12 07:03] LABS: Blood Urea Nitrogen 83 mg/dl (9-20)
--- NOTE | 2023-12-12 07:40 | SW/DCPLANNER ---
Addendum entered by Jennifer Carty 12/13/23 08:14: I have updated Aminah warren/ [facility] that the plan for this patient is to return today. Addendum entered by Jennifer Carty 12/12/23 11:50: Updated patient information has been faxed to Aminah warren/ [facility]. Original Note: This patient currently resides at [facility] level of care. I will continue to follow up w/ Aminah at [facility] till patient is medically stable for discharge. Discharge date is unknown at this time.
[2023-12-12 08:00] VITALS: BP 122/68; PULSE 55; PULSE 60; RESP 18; TEMP 36.8; O2SAT 94
[2023-12-12] MEDS: PANTOPRAZOLE 40MG TABLET 40 MG PO (08:19)
[2023-12-12] MEDS: MIDODRINE HCL 5 MG TABLET PO ×3 (08:19→20:37)
[2023-12-12 08:37] LABS: C-Reactive Protein 82.4 mg/L (0-4)
--- NOTE | 2023-12-12 08:40 | CA_ITS ---
APPROVED REPORT EXAM: Comprehensive 2D, Doppler, and color-flow Echocardiogram Line Technician: Nuha Rose RVT Ht: 5 ft 6 in Wt: 187lbs BSA: 1.94 BP: 99/55 mmHg Indications: CP,ELEVATED TROP,DM,HTN,HLD,EX SMOKER,AAA,CHF 2D Dimensions IVSd 1.11 cm M: 0.6-1.2 LVEF (Visual) 73.50 % PWd 0.84 cm M: 0.6 - 1.2 LA Volume 42.00 mL LVDd 3.76 cm M: 4.2 - 5.9 LA Volume Index 21.54 mL/m2 (M/F) 16-34 LVDs 2.19 cm M: 2.5 - 4.0 M-Mode Dimensions LA Diam 4.05 cm (1.9-4.0) TAPSE 2.65 (<1.7) LV Diastology E Decel Time 293 (160-240 msec) E/A Ratio 0.7 Aortic Valve KASEY Index 2.01 cm2/m2 AoV Peak Broderick. 129.0 (50-130 cm/s) AI PHT 1636.00 ms AO Peak GR. 6.70 mmHg AO Mean GR. 2.60 (<5 mmHg) AO VTI 20.3 (18-25 cm) KASEY (VTI) 4.00 (2.5-4.5 cm2) Mitral Valve MV E Max Broderick. 52.0 (40-130 cm/s) MV A Velocity 72.0 (40-130 cm/s) E/A Ratio 0.72 MV PHT 86.0 ms Pulmonary Valve PV Peak Velocity 84.0 (50-150 cm/s) Tricuspid Valve TR P. Velocity 283.00 cm/s RAP Estimate 10.00 mmHg RVSP 42.10 mmHg Left Ventricle The left ventricle is normal size. The left ventricular systolic function is normal. The left ventricular ejection fraction is within the normal range. There is increased LV wall thickness. There is normal LV segmental wall motion. Transmitral Doppler flow pattern suggests impaired LV relaxation. LVEF is 65%. Right Ventricle Right ventricle is mildly dilated. The right ventricular systolic function is normal. Atria Left atrium is mildly dilated. Right atrium is mildly dilated. There is no Doppler evidence of interatrial shunt. Aortic Valve The aortic valve is mildly thickened. There is no aortic valvular stenosis. Mild aortic regurgitation. Mitral Valve The mitral valve leaflets are mildly thickened. No evidence of mitral valve stenosis. Mild mitral regurgitation. Tricuspid Valve The tricuspid valve leaflets are thin and pliable. Mild tricuspid regurgitation. RVSP is 30-35 mmHg. Pulmonic Valve The pulmonary valve is normal in structure. Trace pulmonic regurgitation. Great Vessels The aortic root is normal in size. Mildly dilated ascending aorta, measuring 4.2 cm in diameter. IVC is normal in size and collapses >50% with inspiration. Pericardium There is no pericardial effusion. Other Information Study Quality: Fair Conclusion Normal biventricular systolic function. No regional wall motion abnormalities noted. Mild biatrial dilation. Mild AI, mild MR, mild TR. Electronically signed by : Anushka Nguyen MD 12/13/2023 03:02:48
[2023-12-12 09:07] LABS: Lipase 374 U/L (23-300)
[2023-12-12 09:19] LABS: Troponin I 0.02 ng/ml (0.00-0.034)
--- NOTE | 2023-12-12 09:56 | CA_ITS ---
FINAL REPORT CLINICAL HISTORY: chest pain, hypotension, Bedridden COMPARISON: None FINDINGS: DUPLEX VENOUS SONOGRAPHY OF THE BILATERAL LOWER EXTREMITIES Multiple transverse and longitudinal scans were performed of the femoropopliteal deep venous systems, with augmentation and compression maneuvers. Normal phasic flow was noted in the visualized deep venous systems. No intraluminal increased echogenicity is noted to suggest thrombus. There is normal compression and augmentation of the venous structures. No abnormal venous collaterals are seen. IMPRESSION: No evidence of deep venous thrombosis of the bilateral lower extremities. Reviewed, Interpreted and Dictated by Joseline Gaona MD Transcribed by Sharon Fine Authenticated and [facility]
--- NOTE | 2023-12-12 10:36 | EXP.CARD.CON ---
History of Present Illness History of Present Illness Consult date: 12/12/23 Requesting physician: Raza Brooks Consult reason: chest pain Chief complaint: chest pain, hypotension History of present illness: Patient presents from [facility] with hypotension and chest pain. Per [facility] records patient consistently complains of chest discomfort, and given as needed nitroglycerin. [facility] noted low blood pressure, so concerned about giving nitroglycerin. Patient subsequently sent to emergency room for evaluation. Patient extremely poor historian, and only able to tell Dr. Brooks chest pain substernal, 6 out of 10, intermittent. Denies fevers, chills, abdominal pain, bowel sick contacts, diarrhea, constipation. Patient's lactic acid 417 in emergency room. [facility] paperwork shows patient is DNR/DNI at baseline. The above per Dr. Todd Connelly historian No chest pain this AM Chart reviewed and patient discussed with Dr. Reveles. check echo and myles myoview if patient agreeable. [facility] Disclaimer: The information contained in this section may have been updated after the patient was seen, as this information can be updated by other users. Medical History (Updated 12/12/23 @ 10:43 by ESTEFANI Rivero) CKD (chronic kidney disease) GERD (gastroesophageal reflux disease) Hypertension Myasthenia gravis Insomnia Insomnia Hyperlipidemia Aortic aneurysm CHF (congestive heart failure) Obesity Dysphagia Diabetes mellitus, type 2 Family History (Updated 12/11/23 @ 19:05 by Judy Saba, MARCIA) Other No significant family history Social History (Updated 12/11/23 @ 19:06 by Judy Saba RN) Smoking Status: Former smoker alcohol intake: never current occupational status: other Travel in the last 8 weeks: None Review of Systems Review of Systems Review of systems:: unable to obtain Exam Data for Last 24 hours Vital signs and Labs for Last 24 Hours: Temp Pulse Resp BP Pulse Ox O2 Del Method 98.3 F 60 18 122/68 94 L Room Air 12/12/23 08:00 12/12/23 08:00 12/12/23 08:00 12/12/23 08:00 12/12/23 08:00 12/12/23 09:00 Laboratory Results - last 24 hr 12/11/23 04:18: Urine Color Yellow, Urine Appearance Clear, Urine pH 6.0, Ur Specific [place] 1.015, Urine Protein Trace, Urine Glucose (UA) 1+, Urine Ketones Negative, Urine Blood Trace-i, Urine Nitrate Negative, Urine Bilirubin Negative, Urine Urobilinogen 0.2, Ur Leukocyte Esterase 2+ A, Urine RBC Occasional, Urine WBC 50-100, Ur Squamous Epith Cells Occasional, Urine Bacteria 2+ 12/11/23 14:08: WBC 9.6, RBC 3.89 L, Hgb 12.9 L, Hct 38.5 L, MCV 99.1 H, MCH 33.2 H, MCHC 33.4, RDW 13.9, Plt Count 275, MPV 8.2, Neut % (Auto) 78.4, Lymph % (Auto) 14.4, [place] % (Auto) 3.9, Eos % (Auto) 2.7, Baso % (Auto) 0.5, Neut # (Auto) 7.6, Lymph # (Auto) 1.4, [place] # (Auto) 0.4, Eos # (Auto) 0.3, Baso # (Auto) 0.1, PT 10.7, INR 0.95, Sodium 136, Potassium 4.3, Chloride 98, Carbon Dioxide 29, Anion Gap 13.3, BUN 95 H, Creatinine 2.60 H, Estimated Creat Clear 18, Estimated GFR 23 L, Est GFR ( Amer) 28 L, Glucose 163 H, Calcium 9.8, Magnesium 2.1, Total Bilirubin 0.5, AST 22, ALT 16, Alkaline Phosphatase 87, Troponin I < 0.01, NT-Pro-B Natriuret Pep 806 H, Total Protein 7.8, Albumin 4.0, Globulin 3.8 H, Albumin/Globulin Ratio 1.1, Lipase 417 H 12/11/23 18:14: Troponin I 0.01 12/11/23 20:30: POC Glucose 129 H 12/11/23 21:59: Troponin I 0.01, C-Reactive Protein 81.2 H, Procalcitonin 0.220 12/11/23 23:18: Troponin I 0.01 12/12/23 02:37: POC Glucose 138 H 12/12/23 05:55: WBC 9.0, RBC 3.72 L, Hgb 12.3 L, Hct 37.8 L, MCV 101.6 H, MCH 33.0 H, MCHC 32.5, RDW 14.1, Plt Count 245, MPV 7.9, Neut % (Auto) 81.0 H, Lymph % (Auto) 12.9, [place] % (Auto) 3.4, Eos % (Auto) 2.4, Baso % (Auto) 0.4, Neut # (Auto) 7.3, Lymph # (Auto) 1.2, [place] # (Auto) 0.3, Eos # (Auto) 0.2, Baso # (Auto) 0.0, Sodium 139, Potassium 3.5, Chloride 102, Carbon Dioxide 29, Anion Gap 11.5, BUN 83 H, Creatinine 2.50 H, Estimated Creat Clear 25, Estimated GFR 25 L, Est GFR ( Amer) 30 L, Glucose 143 H, Calcium 9.5, Magnesium 2.1, Total Bilirubin 0.4, AST 17, ALT 11 L D, Alkaline Phosphatase 91, Troponin I 0.02, C-Reactive Protein 82.4 H, Total Protein 7.2, Albumin 3.7, Globulin 3.5 H, Albumin/Globulin Ratio 1.1, Lipase 374 H, Procalcitonin 0.180 I & O for Last 24 hours: Intake & Output 12/09/23 12/10/23 12/11/23 12/12/23 11:59 11:59 11:59 11:59 Intake Total 1207 / 1207 Output Total 900 / 900 Balance 307 / 307 Weight 187 lb 4.8 oz Constitutional Constitutional: no acute distress *Routine Respiratory Exam Respiratory: Present diminished air movement; Absent rhonchi or wheezes *Routine Cardiovascular Exam Cardiovascular: Present RRR; Absent murmur, gallop or rubs *Routine Extremities Exam Extremities: Absent edema *Routine Neurological Exam Neurological: Present alert Meds Home Medications and Allergies Home Medications Medication Instructions Recorded Confirmed Type acetaminophen 650 mg 650 mg PO BID 12/12/23 12/12/23 History tablet,extended release carvedilol 6.25 mg tablet 6.25 mg PO BID 12/12/23 12/12/23 History clopidogrel 75 mg tablet 75 mg PO DAILY 12/12/23 12/12/23 History dapagliflozin propanediol 10 mg 10 mg PO DAILY 12/12/23 12/12/23 History tablet (Farxiga) furosemide 40 mg tablet 80 mg PO DAILY 12/12/23 12/12/23 History gabapentin 100 mg capsule 100 mg PO BID 12/12/23 12/12/23 History insulin lispro 100 unit/mL See Rx Instructions .Route .COMPLEX 12/12/23 12/12/23 History subcutaneous pen (Humalog KwikPen (U-100) Insulin) isosorbide mononitrate 30 mg 30 mg PO DAILY 12/12/23 12/12/23 History tablet,extended release 24 hr melatonin 3 mg tablet 3 mg PO HS 12/12/23 12/12/23 History metolazone 5 mg tablet 5 mg PO MOWEFR 12/12/23 12/12/23 History polyethylene glycol 3350 17 17 g PO DAILY 12/12/23 12/12/23 History gram/dose oral powder potassium chloride 20 mEq 20 meq PO DAILY 12/12/23 12/12/23 History tablet,extended release(part/cryst) rabeprazole 20 mg tablet,delayed 20 mg PO DAILY 12/12/23 12/12/23 History release tamsulosin 0.4 mg capsule 0.4 mg PO HS 12/12/23 12/12/23 History trazodone 150 mg tablet 150 mg PO HS 12/12/23 12/12/23 History New Prescriptions to Start Prescriptions: Allergies Allergy/AdvReac Type Severity Reaction Status Date / Time No Known Allergies Allergy Verified 04/23/23 11:15 Assessment and Plan *Assessment and plan (1) Chest pain: Status: Acute Qualifiers: Chest pain type: unspecified Qualified Code(s): R07.9 - Chest pain, unspecified Category: Medical Code(s): R07.9 - Chest pain, unspecified (2) Aortic aneurysm: Status: Acute Qualifiers: Aortic location: thoracic aorta Presence of rupture: without rupture Thoracic aorta location: ascending aorta Qualified Code(s): I71.21 - Aneurysm of the ascending aorta, without rupture Category: Medical Code(s): I71.9 - Aortic aneurysm of unspecified site, without rupture (3) Acute kidney injury superimposed on stage 3b chronic kidney disease: Status: Acute Category: Medical Code(s): N17.9 - Acute kidney failure, unspecified; N18.32 - Chronic kidney disease, stage 3b (4) Acute UTI: Status: Acute Category: Medical Code(s): N39.0 - Urinary tract infection, site not specified Plan 1. Chest pain with tracheal secretions on chest CT -normal troponins -echo pending -CAC noted on chest CTA 03/2023 -get old records of prior cardiac workup -on coreg, plavix, farxiga and isosorbide at [place] 2. Acute on chronic CKD stage 3b -no ARB or KIRTI -on lasix and metolazone at [place] -elevated BNP here but no CHF/effusions on chest CT. 3. 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 UTI -on antibiotics 5. Elevated lipase, mild -no abdominal complaints check old records from [place] for prior cardiac workup check echo and hold on further workup at this time. BP Ok while holding home meds. No complaint of chest pain check LE venous doppler due to sedentary lifestyle and complaint of chest pain Continue to monitor vitals and adjust meds as needed.
[2023-12-12] MEDS: OFLOXACIN 0.3% OPHTH DROPS 5ML OP ×3 (11:58→23:12)
[2023-12-12] MEDS: CEFTRIAXONE SODIUM 1 GM in 0.9 % SODIUM CHLORIDE 50 ML IV (11:58)
[2023-12-12 12:00] VITALS: BP 104/59; PULSE 55; RESP 18; TEMP 36.5; O2SAT 96
--- NOTE | 2023-12-12 12:10 | PC.NURSE ---
turned and repositioned pt. i also cleaned out his left eye and placed the drops. he denies any pain @ this time.
--- NOTE | 2023-12-12 12:53 | P.CONPHA_ITS ---
Pharmacy Intervention Comments: MEDICATION RECONCILIATION COMPLETED ON PATIENT USING MAR FROM [facility]. -NAHOMY PERERA, CASEYD
--- NOTE | 2023-12-12 12:53 | HMH.PHAINT1 ---
Pharmacy Intervention Comments: MEDICATION RECONCILIATION COMPLETED ON PATIENT USING MAR FROM [facility]. -NAHOMY PERERA, CASEYD
[2023-12-12 13:33] LABS: POC Glucose,Bedside 125 (70-110)
--- NOTE | 2023-12-12 15:41 | P.PN_ITS ---
Subjective *Date: 12/12/23 *Time: 21:42 Interval history: Patient stable on room air. No nausea or vomiting today. On exam states he hurts everywhere. When asked specifically about chest pain or abdominal pain, states he does not have any at this time. Complains about pain in his single solitary tooth. No fever. No lesions in his mouth on exam. Medical Exam Vital signs and Labs for Last 24 Hours: Vital Signs Temp Pulse Pulse Resp BP BP Pulse Ox 12/12/23 13:00 12/12/23 12:00 55 L 12/12/23 12:00 97.7 F 55 L 18 104/59 L 96 12/12/23 11:00 12/12/23 09:00 12/12/23 08:00 55 L 12/12/23 08:00 12/12/23 08:00 98.3 F 60 18 122/68 94 L 12/12/23 06:57 12/12/23 05:00 12/12/23 04:00 59 L 12/12/23 04:00 98 F 57 L 18 117/48 L 97 12/12/23 03:00 12/12/23 01:00 12/12/23 00:00 56 L 12/11/23 23:48 97.6 F 58 L 16 106/48 L 93 L 12/11/23 23:00 12/11/23 21:00 12/11/23 20:00 57 L 12/11/23 20:00 97.7 F 56 L 16 99/55 L 96 12/11/23 19:53 12/11/23 19:00 12/11/23 18:39 12/11/23 18:20 97.7 F 60 18 108/58 L 12/11/23 18:18 57 L 19 108/58 L 95 12/11/23 17:15 62 16 95 O2 Del Method 12/12/23 13:00 Room Air 12/12/23 12:00 12/12/23 12:00 Room Air 12/12/23 11:00 Room Air 12/12/23 09:00 Room Air 12/12/23 08:00 12/12/23 08:00 Room Air 12/12/23 08:00 Room Air 12/12/23 06:57 Room Air 12/12/23 05:00 Room Air 12/12/23 04:00 12/12/23 04:00 Room Air 12/12/23 03:00 Room Air 12/12/23 01:00 Room Air 12/12/23 00:00 12/11/23 23:48 Room Air 12/11/23 23:00 Room Air 12/11/23 21:00 Room Air 12/11/23 20:00 12/11/23 20:00 Room Air 12/11/23 19:53 Room Air 12/11/23 19:00 Room Air 12/11/23 18:39 Room Air 12/11/23 18:20 Room Air 12/11/23 18:18 12/11/23 17:15 Intake and Output 12/11/23 12/12/23 12/12/23 23:59 07:59 15:59 Intake Total 1207 / 1207 Output Total 0 / 0 500 / 2375 1875 / 2375 Balance 0 / 0 707 / -1168 -1875 / -1168 Intake: Intake, Total IV Amount 1207 / 1207 0.9 % Sodium Chloride 1000ML 1, 1207 / 1207 000 ml @ 100 mls/hr IV .Q10H [facility] Rx#:[id number] Output: Output, Urine Amount 0 / 0 500 / 2375 1875 / 2375 Other: Number of Unmeasured Voids 1 0 Number of Bowel Movements 1 1 Weight 86.268 kg 84.958 kg Patient Weight 12/12/23 23:59 Weight 84.958 kg Laboratory Results - last 24 hr 12/11/23 04:18: Urine Color Yellow, Urine Appearance Clear, Urine pH 6.0, Ur Specific [place] 1.015, Urine Protein Trace, Urine Glucose (UA) 1+, Urine Ketones Negative, Urine Blood Trace-i, Urine Nitrate Negative, Urine Bilirubin Negative, Urine Urobilinogen 0.2, Ur Leukocyte Esterase 2+ A, Urine RBC Occasional, Urine WBC 50-100, Ur Squamous Epith Cells Occasional, Urine Bacteria 2+ 12/11/23 18:14: Troponin I 0.01 12/11/23 20:30: POC Glucose 129 H 12/11/23 21:59: Troponin I 0.01, C-Reactive Protein 81.2 H, Procalcitonin 0.220 12/11/23 23:18: Troponin I 0.01 12/12/23 02:37: POC Glucose 138 H 12/12/23 05:55: WBC 9.0, RBC 3.72 L, Hgb 12.3 L, Hct 37.8 L, MCV 101.6 H, MCH 33.0 H, MCHC 32.5, RDW 14.1, Plt Count 245, MPV 7.9, Neut % (Auto) 81.0 H, Lymph % (Auto) 12.9, [place] % (Auto) 3.4, Eos % (Auto) 2.4, Baso % (Auto) 0.4, Neut # (Auto) 7.3, Lymph # (Auto) 1.2, [place] # (Auto) 0.3, Eos # (Auto) 0.2, Baso # (Auto) 0.0, Sodium 139, Potassium 3.5, Chloride 102, Carbon Dioxide 29, Anion Gap 11.5, BUN 83 H, Creatinine 2.50 H, Estimated Creat Clear 25, Estimated GFR 25 L, Est GFR ( Amer) 30 L, Glucose 143 H, Calcium 9.5, Magnesium 2.1, Total Bilirubin 0.4, AST 17, ALT 11 L D, Alkaline Phosphatase 91, Troponin I 0.02, C-Reactive Protein 82.4 H, Total Protein 7.2, Albumin 3.7, Globulin 3.5 H, Albumin/Globulin Ratio 1.1, Lipase 374 H, Procalcitonin 0.180 12/12/23 13:25: POC Glucose 125 H I & O for Labs for Last 24 Hours: Intake & Output 12/09/23 12/10/23 12/11/23 12/12/23 23:59 23:59 23:59 23:59 Intake Total 1207 / 1207 Output Total 0 / 0 2375 / 2375 Balance 0 / 0 -1168 / -1168 Weight 86.268 kg 84.958 kg Constitutional: Present no acute distress, obese and chronically ill appearing Head: Present atraumatic and normocephalic Comment:: Single solitary mandibular tooth. No caries. No significant erythema or lesions. No thrush. Respiratory: Present normal respiratory effort; Absent rhonchi, wheezes or crackles Cardiac: Present Reg Rate and Rhythm GI: Present soft and normal bowel sounds; Absent distention or tenderness Comment:: Male PureWick in place Extremities: Present normal inspection and full ROM Skin: Present intact; Absent erythema Neuro: Present Grossly Intact, alert, awake and moves all extremities Assessment and Plan *Assessment and plan (1) Acute nontraumatic kidney injury: Status: Acute Category: Medical Code(s): N17.9 - Acute kidney failure, unspecified (2) Acute pancreatitis: Status: Acute Qualifiers: Acute pancreatitis complication: unspecified Pancreatitis type: unspecified pancreatitis type Qualified Code(s): K85.90 - Acute pancreatitis without necrosis or infection, unspecified Category: Medical Code(s): K85.90 - Acute pancreatitis without necrosis or infection, unspecified (3) Chest pain: Status: Acute Qualifiers: Chest pain type: unspecified Qualified Code(s): R07.9 - Chest pain, unspecified Category: Medical Code(s): R07.9 - Chest pain, unspecified (4) Acute UTI: Status: Acute Category: Medical Code(s): N39.0 - Urinary tract infection, site not specified (5) CAD (coronary artery disease): Status: Acute Category: Medical Code(s): I25.10 - Atherosclerotic heart disease of [place] coronary artery without angina pectoris Plan 88-year-old male is long-term resident [facility]. Presented for complaint of pain. Found to have elevated lipase in the ER. Negative troponin. Denying chest pain today. Awaiting echo read from cardiology. Obtaining records from [place] from previous workups in the past with c ardiology. Will advance diet today. Anticipate discharge tomorrow if tolerates p.o. intake. Problems addressed as follows: Pancreatitis: ?Unclear etiology. Denies any pain today. Will advance diet. Lipase somewhat improved to 300. Asymptomatic bradycardia: ? Continue telemetry. Echo obtained today, formal read still pending. DRE secondary to dehydration vs CKD ? Creatinine 2.5, BUN 83. Making good urine, -1.2 L today. -Unclear patient's baseline. Hypotension rule out sepsis: -Blood pressure controlled. Tolerating midodrine 5 mg p.o. 3 times a day. Will hold carvedilol, Lasix, isosorbide. -Resume Plavix 75 mg daily Chronic chest pain: ? Patient usually given as needed nitroglycerin in longterm. Will refrain from giving as needed nitro given hypotension. Consult cardiology for chest pain evaluation during hospitalization. DNR/DNI Regular diet
[2023-12-12 16:00] VITALS: BP 120/60; PULSE 60; PULSE 65; RESP 20; TEMP 36.9; O2SAT 97
[2023-12-12 17:05] LABS: POC Glucose,Bedside 112 (70-110)
[2023-12-12] MEDS: ACETAMINOPHEN 325MG TAB 650 MG PO (19:59)
[2023-12-12 20:00] VITALS: BP 115/60; PULSE 64; PULSE 70; RESP 16; TEMP 36.9; O2SAT 94
[2023-12-12 20:53] LABS: POC Glucose,Bedside 165 (70-110)
[2023-12-13] VITALS: BP 135/65; PULSE 55; PULSE 56; RESP 16; TEMP 36.8; O2SAT 99
[2023-12-13] MEDS: ACETAMINOPHEN 325MG TAB 650 MG PO (02:41)
--- NOTE | 2023-12-13 03:01 | PC.NURSE ---
Pt just had an episode of confusion, not WNL for him . Pt was found calling out by staff. He appears anxious and reports that the ceiling is upside down . Pt easily reoriented and calmed. Pt reports back hurting. Requesting Tylenol. Medicated with tylenol and repositioned for comfort. Pt now calm and trying to go back to sleep. Reinforced use of call curran if needs arise
[2023-12-13 04:00] VITALS: BP 152/85; PULSE 53; PULSE 65; RESP 15; TEMP 36.8; O2SAT 96; BMI 30.1
[2023-12-13] MEDS: HEPARIN SODIUM 5,000 UNIT/ML VIAL 5000 UNIT SQ ×2 (04:38→11:31)
[2023-12-13] MEDS: OFLOXACIN 0.3% OPHTH DROPS 5ML OP ×2 (04:39→11:32)
[2023-12-13 04:52] LABS: POC Glucose,Bedside 124 (70-110)
--- NOTE | 2023-12-13 05:29 | PC.NURSE ---
Pt has slept some on and off during shift. He was medicated with tylenol for complaints of back pain. He has had 2 different episodes where he became anxious and seemingly fearful stating the ceiling is upside down . No real changes otherwise, pt is alert, able to state his name, knows he is in the hospital and is easily comforted and calmed. FSBS at 9p was 165 and at 530 was 124. [employer] did not administer any insulin as pts appetite is poor. Pt also complained of pain in a tooth in the night
[2023-12-13 06:19] LABS: Basophils # 0.1 K/mm3 (0-0.2); Basophils % 0.6 % (0.1-2.0); Eosinophils # 0.2 K/mm3 (0.0-0.4); Eosinophils % 2.4 % (0.1-12.0); Hematocrit 37.7 % (42.0-52.0); Hemoglobin 12.5 g/dL (14.1-18.0); Lymphocytes # 1.1 K/mm3 (0.7-4.5); Lymphocytes % 13.5 % (10-50); Mean Corpuscular HGB Conc 33.1 g/dL (31.8-35.4); Mean Corpuscular Hemoglobin 33.3 pg (27.0-31.2); Mean Corpuscular Volume 100.6 fl (80-94); Monocytes # 0.3 K/mm3 (0.1-1.0); Monocytes % 3.7 % (1.7-9.3); Neutrophils # 6.6 K/mm3 (1.8-7.8); Neutrophils % 79.8 % (37.0-80.0); Platelet Count 250 K/mm3 (142-424); Red Blood Count 3.75 M/mm3 (4.60-6.20); Red Cell Distribution Width 13.9 % (11.5-17.5); White Blood Count 8.3 K/mm3 (4.8-10.8)
[2023-12-13 06:28] LABS: Alanine Aminotransferase 13 U/L (12-78); Albumin Level 3.6 g/dl (3.5-5.0); Alkaline Phosphatase 97 U/L (38-126); Anion Gap 14.3 mEq/L (5-15); Aspartate Amino Transferase 16 U/L (17-59); Bilirubin,Total 0.5 mg/dl (0.2-1.3); Blood Urea Nitrogen 67 mg/dl (9-20); Calcium 9.9 mg/dl (8.4-10.2); Carbon Dioxide 27 mmol/L (22.0-30.0); Chloride 102 mmol/L (98-107); Creatinine Clearance Estimated 30 mL/min (50-200); Estimated Glomerular Filt Rate 30 ml/min (>60); GFR (African American) 36 ML/MIN (>60); Globulin 3.6 g/dL (1.3-3.2); Glucose 143 mg/dl (74-100); Magnesium 2.1 mg/dl (1.6-2.3); Potassium 3.3 mmoL/L (3.5-5.1); Sodium 140 mmol/L (136-145); Total Protein,Serum 7.2 g/dl (6.3-8.2)
[2023-12-13 07:24] LABS: Lipase 294 U/L (23-300)
[2023-12-13 07:29] LABS: C-Reactive Protein 100.5 mg/L (0-4)
[2023-12-13] MEDS: ONDANSETRON 4MG/2ML VIAL 4 MG IV (07:33)
[2023-12-13 07:43] LABS: Procalcitonin 0.156 ng/mL (0.0-2.0)
[2023-12-13 08:00] VITALS: BP 148/68; PULSE 70; PULSE 80; RESP 18; TEMP 36.8; O2SAT 94
[2023-12-13] MEDS: POTASSIUM CHLORIDE 20MEQ TAB 20 MEQ PO (09:17)
[2023-12-13] MEDS: MIDODRINE HCL 5 MG TABLET PO (09:17)
[2023-12-13] MEDS: PANTOPRAZOLE 40MG TABLET 40 MG PO (09:17)
--- NOTE | 2023-12-13 09:21 | EXP.CARD.PN ---
Subjective Subjective Date: 12/13/23 Time: 09:21 Principal diagnosis: UTI, AMS, chest pain Interval history: 88-year-old white male in bed in no acute distress. No complaints of chest pain, pressure or tightness overnight. He states that he has been awake all night due to the ceiling falling down on him repeatedly. Echocardiogram showed preserved ejection fraction with no wall motion abnormalities. Exam Data for Last 24 hours Vital signs and Labs for Last 24 Hours: Temp Pulse Resp BP Pulse Ox O2 Del Method 98.2 F 65 15 152/85 H 96 Room Air 12/13/23 04:00 12/13/23 04:00 12/13/23 04:00 12/13/23 04:00 12/13/23 04:00 12/13/23 06:42 Laboratory Results - last 24 hr 12/12/23 05:55: Troponin I 0.02 12/12/23 13:25: POC Glucose 125 H 12/12/23 16:56: POC Glucose 112 H 12/12/23 20:42: POC Glucose 165 H 12/13/23 04:44: POC Glucose 124 H 12/13/23 05:47: WBC 8.3, RBC 3.75 L, Hgb 12.5 L, Hct 37.7 L, MCV 100.6 H, MCH 33.3 H, MCHC 33.1, RDW 13.9, Plt Count 250, MPV 8.0, Neut % (Auto) 79.8, Lymph % (Auto) 13.5, [place] % (Auto) 3.7, Eos % (Auto) 2.4, Baso % (Auto) 0.6, Neut # (Auto) 6.6, Lymph # (Auto) 1.1, [place] # (Auto) 0.3, Eos # (Auto) 0.2, Baso # (Auto) 0.1, Sodium 140, Potassium 3.3 L, Chloride 102, Carbon Dioxide 27, Anion Gap 14.3, BUN 67 H, Creatinine 2.10 H, Estimated Creat Clear 30, Estimated GFR 30 L, Est GFR ( Amer) 36 L, Glucose 143 H, Calcium 9.9, Magnesium 2.1, Total Bilirubin 0.5, AST 16 L, ALT 13, Alkaline Phosphatase 97, C-Reactive Protein 100.5 H, Total Protein 7.2, Albumin 3.6, Globulin 3.6 H, Albumin/Globulin Ratio 1.0 L, Lipase 294, Procalcitonin 0.156 I & O for Last 24 hours: Intake & Output 12/10/23 12/11/23 12/12/23 12/13/23 11:59 11:59 11:59 11:59 Intake Total 1207 / 1207 480 / 480 Output Total 1500 / 1500 1974 Balance -293 / -293 -1495 / -1495 Weight 187 lb 4.8 oz 187 lb 4.805 oz Constitutional Constitutional: no acute distress *Routine Respiratory Exam Respiratory: Present CTA bilaterally *Routine Cardiovascular Exam Cardiovascular: Present RRR *Routine Neurological Exam Neurological: Present alert; Absent oriented X3 Progress Note: A&P Assessment and plan (1) Acute nontraumatic kidney injury: Status: Acute (2) Acute pancreatitis: Status: Acute (3) Chest pain: Status: Acute (4) Acute UTI: Status: Acute (5) CAD (coronary artery disease): Status: Acute (6) Functional quadriplegia: Status: Acute Assessment and Plan Assessment and Plan for All Diagnoses:: 1. Chest pain with tracheal secretions on chest CT -normal troponins -echo normal EF with no wall motion abnormalities. -CAC noted on chest CTA 03/2023 -[facility] from [facility], 2018, patent ostial/proximal stent in LAD, subtotal occlusion of second diagonal, unable to cross. RCA occluded with left to right collaterals. Second OM stented. Dr. Poole -on coreg, plavix, farxiga and isosorbide at [place] 2. 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 3. 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 UTI -on antibiotics 5. Elevated lipase, mild -no abdominal complaints Continue to monitor heart rate and blood pressure while holding medications. Continue to hold diuretics Recommend restarting Plavix 75 mg daily due to history of coronary artery disease No further testing at this time If blood pressure continues to increase then we will restart carvedilol as needed.
--- NOTE | 2023-12-13 09:43 | P.DS_ITS ---
General Admission date:: 12/11/23 Discharge date: 12/13/23 HPI HPI HPI: Patient presents from [facility] with hypotension and chest pain. Per group home records patient consistently complains of chest discomfort, and given as needed nitroglycerin. [facility] noted low blood pressure, so concerned about giving nitroglycerin. Patient subsequently sent to emergency room for evaluation. Patient extremely poor historian, and only able to tell Dr. Brooks chest pain substernal, 6 out of 10, intermittent. Denies fevers, chills, abdominal pain, bowel sick contacts, diarrhea, constipation. Patient's lactic acid 417 in emergency room. [facility] paperwork shows patient is DNR/DNI at baseline. Hospital Course Hospital Course Hospital Course: 88-year-old male is long-term resident [facility]. Presented for complaint of pain. Found to have elevated lipase in the ER. Negative troponin. Patient has generalized complaints of pain but then when asked about specific areas, denies any abdominal pain or chest pain. Complaining of some discomfort with his left lower tooth. Patient is hemodynamically stable. White count is normalized. Was noted to have a UTI. Kidney injury improving. Meeting criteria for discharge back to group home for continued care. Will continue to require antibiotics for 5 more days. Otherwise stable to discharge. Problems addressed as follows: UTI: DRE Chronic kidney disease -Patient presented with elevated creatinine and grossly abnormal urine. Started empirically on ceftriaxone. Urine culture still pending at time of discharge, will transition to Levaquin for ease of administration. Continue Levaquin 750 mg every 48 hours. First dose due on 12/13. We will continue to follow culture and reach out to nursing facility if adjustments need to be made to antibiotic regimen. Kidney function initially abnormal. Baseline appears to be 1.7. Improved to 2.1 by day of discharge. Tolerating p.o. intake. Continue oral hydration. Adjustments made to diuretic regimen at discharge. Recommend to repeat labs with CBC, CMP, magnesium in 1 week. Pancreatitis: ?Unclear etiology. Denies any significant abdominal pain. Lipase elevated above 400 on admission. Improved to 200s by day of discharge. No clinical significance of pancreatitis on CT abdomen. Unclear the significance of the elevated enzyme. Advance diet to normal for patient after returning to group home. Asymptomatic bradycardia: CAD ?Monitor on telemetry during admission. Echo obtained with normal ejection fraction. Will resume home medications for CAD and hypertension. -Reviewed patient's records from [place]. Last cath in 2018. Had stenosis of LAD stent. Was intervened on at that time. Other minor disease with collateralization. No intervention planned at this time. Continue medical management with isosorbide, carvedilol, Plavix. Chronic chest pain: ? Patient usually given as needed nitroglycerin in group home. Continue nitroglycerin if needed. Stable to discharge back [facility] for continued care. Total time spent on discharge 32 minutes in counseling, documentation, chart review, and direct care with patient. Exam Data for Last 24 hours Vital signs and Labs for Last 24 Hours: Temp Pulse Resp BP Pulse Ox O2 Del Method 98.4 F 64 16 115/60 94 L Room Air 12/12/23 20:00 12/12/23 20:00 12/12/23 20:00 12/12/23 20:00 12/12/23 20:00 12/12/23 20:00 Laboratory Results - last 24 hr 12/11/23 04:18: Urine Color Yellow, Urine Appearance Clear, Urine pH 6.0, Ur Specific [place] 1.015, Urine Protein Trace, Urine Glucose (UA) 1+, Urine Ketones Negative, Urine Blood Trace-i, Urine Nitrate Negative, Urine Bilirubin Negative, Urine Urobilinogen 0.2, Ur Leukocyte Esterase 2+ A, Urine RBC Occasional, Urine WBC 50-100, Ur Squamous Epith Cells Occasional, Urine Bacteria 2+ 12/11/23 21:59: C-Reactive Protein 81.2 H, Procalcitonin 0.220 12/11/23 23:18: Troponin I 0.01 12/12/23 02:37: POC Glucose 138 H 12/12/23 05:55: WBC 9.0, RBC 3.72 L, Hgb 12.3 L, Hct 37.8 L, MCV 101.6 H, MCH 33.0 H, MCHC 32.5, RDW 14.1, Plt Count 245, MPV 7.9, Neut % (Auto) 81.0 H, Lymph % (Auto) 12.9, [place] % (Auto) 3.4, Eos % (Auto) 2.4, Baso % (Auto) 0.4, Neut # (Auto) 7.3, Lymph # (Auto) 1.2, [place] # (Auto) 0.3, Eos # (Auto) 0.2, Baso # (Auto) 0.0, Sodium 139, Potassium 3.5, Chloride 102, Carbon Dioxide 29, Anion Gap 11.5, BUN 83 H, Creatinine 2.50 H, Estimated Creat Clear 25, Estimated GFR 25 L, Est GFR ( Amer) 30 L, Glucose 143 H, Calcium 9.5, Magnesium 2.1, Total Bilirubin 0.4, AST 17, ALT 11 L D, Alkaline Phosphatase 91, Troponin I 0.02, C-Reactive Protein 82.4 H, Total Protein 7.2, Albumin 3.7, Globulin 3.5 H, Albumin/Globulin Ratio 1.1, Lipase 374 H, Procalcitonin 0.180 12/12/23 13:25: POC Glucose 125 H 12/12/23 16:56: POC Glucose 112 H 12/12/23 20:42: POC Glucose 165 H I & O for Last 24 hours: Intake & Output 12/09/23 12/10/23 12/11/23 12/12/23 23:59 23:59 23:59 23:59 Intake Total 1687 / 1687 Output Total 0 / 0 2975 / 2975 Balance 0 / 0 -1288 / -1288 Weight 86.268 kg 84.958 kg Constitutional Constitutional: no acute distress, obese, chronically ill appearing and cooperative *Routine HEENT Exam Head: Present normocephalic and atraumatic ENT: Present mucous membranes moist Comments: Solitary mandibular tooth on left side, drooping of left eyelid with mild irritation and clear drainage *Routine Neck Exam Neck: Present supple *Routine Respiratory Exam Respiratory: Absent respiratory distress, rhonchi, wheezes or crackles *Routine Cardiovascular Exam Cardiovascular: Present RRR *Routine Abdominal Exam Abdominal: Present soft and normoactive bowel sounds; Absent tenderness *Routine Rectal Exam Patient deferred: visual exam *Routine Exam Patient deferred: penile exam *Routine Extremities Exam Extremities: Absent cyanosis, clubbing or edema *Routine Skin Exam Skin: Present intact; Absent cyanosis *Routine Neurological Exam Neurological: Present alert and moving all extremities; Absent oriented X3 Comments: Bedbound, weak in all extremities. Functional quadriplegia Results Data Completed and Pending Labs on day of discharge: Labs from last 24 hours 12/12/23 12/12/23 12/12/23 20:42 16:56 13:25 WBC RBC Hgb Hct MCV MCH MCHC RDW Plt Count MPV Neut % (Auto) Lymph % (Auto) [place] % (Auto) Eos % (Auto) Baso % (Auto) Neut # (Auto) Lymph # (Auto) [place] # (Auto) Eos # (Auto) Baso # (Auto) Sodium Potassium Chloride Carbon Dioxide Anion Gap BUN Creatinine Estimated Creat Clear Estimated GFR Est GFR ( Amer) Glucose POC Glucose 165 H 112 H 125 H Calcium Magnesium Total Bilirubin AST ALT Alkaline Phosphatase Troponin I C-Reactive Protein Total Protein Albumin Globulin Albumin/Globulin Ratio Lipase Procalcitonin Urine Color Urine Appearance Urine pH Ur Specific [place] Urine Protein Urine Glucose (UA) Urine Ketones Urine Blood Urine Nitrate Urine Bilirubin Urine Urobilinogen Ur Leukocyte Esterase Urine RBC Urine WBC Ur Squamous Epith Cells Urine Bacteria 12/12/23 12/12/23 12/11/23 05:55 02:37 23:18 WBC 9.0 RBC 3.72 L Hgb 12.3 L Hct 37.8 L MCV 101.6 H MCH 33.0 H MCHC 32.5 RDW 14.1 Plt Count 245 MPV 7.9 Neut % (Auto) 81.0 H Lymph % (Auto) 12.9 [place] % (Auto) 3.4 Eos % (Auto) 2.4 Baso % (Auto) 0.4 Neut # (Auto) 7.3 Lymph # (Auto) 1.2 [place] # (Auto) 0.3 Eos # (Auto) 0.2 Baso # (Auto) 0.0 Sodium 139 Potassium 3.5 Chloride 102 Carbon Dioxide 29 Anion Gap 11.5 BUN 83 H Creatinine 2.50 H Estimated Creat Clear 25 Estimated GFR 25 L Est GFR ( Amer) 30 L Glucose 143 H POC Glucose 138 H Calcium 9.5 Magnesium 2.1 Total Bilirubin 0.4 AST 17 ALT 11 L D Alkaline Phosphatase 91 Troponin I 0.02 0.01 C-Reactive Protein 82.4 H Total Protein 7.2 Albumin 3.7 Globulin 3.5 H Albumin/Globulin Ratio 1.1 Lipase 374 H Procalcitonin 0.180 Urine Color Urine Appearance Urine pH Ur Specific [place] Urine Protein Urine Glucose (UA) Urine Ketones Urine Blood Urine Nitrate Urine Bilirubin Urine Urobilinogen Ur Leukocyte Esterase Urine RBC Urine WBC Ur Squamous Epith Cells Urine Bacteria 12/11/23 12/11/23 21:59 04:18 WBC RBC Hgb Hct MCV MCH MCHC RDW Plt Count MPV Neut % (Auto) Lymph % (Auto) [place] % (Auto) Eos % (Auto) Baso % (Auto) Neut # (Auto) Lymph # (Auto) [place] # (Auto) Eos # (Auto) Baso # (Auto) Sodium Potassium Chloride Carbon Dioxide Anion Gap BUN Creatinine Estimated Creat Clear Estimated GFR Est GFR ( Amer) Glucose POC Glucose Calcium Magnesium Total Bilirubin AST ALT Alkaline Phosphatase Troponin I C-Reactive Protein 81.2 H Total Protein Albumin Globulin Albumin/Globulin Ratio Lipase Procalcitonin 0.220 Urine Color Yellow Urine Appearance Clear Urine pH 6.0 Ur Specific [place] 1.015 Urine Protein Trace Urine Glucose (UA) 1+ Urine Ketones Negative Urine Blood Trace-i Urine Nitrate Negative Urine Bilirubin Negative Urine Urobilinogen 0.2 Ur Leukocyte Esterase 2+ A Urine RBC Occasional Urine WBC 50-100 Ur Squamous Epith Cells Occasional Urine Bacteria 2+ DS: Diagnosis Discharge Diagnosis (1) Acute nontraumatic kidney injury: Status: Acute Code(s): N17.9 - Acute kidney failure, unspecified (2) Acute UTI: Status: Acute Code(s): N39.0 - Urinary tract infection, site not specified (3) Acute pancreatitis: Status: Acute Code(s): K85.90 - Acute pancreatitis without necrosis or infection, unspecified Qualifiers: Acute pancreatitis complication: unspecified Pancreatitis type: unspecified pancreatitis type Qualified Code(s): K85.90 - Acute pancreatitis without necrosis or infection, unspecified (4) Chest pain: Status: Acute Code(s): R07.9 - Chest pain, unspecified Qualifiers: Chest pain type: unspecified Qualified Code(s): R07.9 - Chest pain, unspecified (5) CAD (coronary artery disease): Status: Acute Code(s): I25.10 - Atherosclerotic heart disease of [place] coronary artery without angina pectoris (6) Functional quadriplegia: Status: Acute Code(s): R53.2 - Functional quadriplegia Meds Home Medications and Allergies Home Medications Medication Instructions Recorded Confirmed Type acetaminophen 650 mg 650 mg PO BID 12/12/23 12/12/23 History tablet,extended release carvedilol 6.25 mg tablet 6.25 mg PO BID 12/12/23 12/12/23 History clopidogrel 75 mg tablet 75 mg PO DAILY 12/12/23 12/12/23 History dapagliflozin propanediol 10 mg 10 mg PO DAILY 12/12/23 12/12/23 History tablet (Farxiga) gabapentin 100 mg capsule 100 mg PO BID 12/12/23 12/12/23 History insulin lispro 100 unit/mL See Rx Instructions .Route .COMPLEX 12/12/23 12/12/23 History subcutaneous pen (Humalog KwikPen (U-100) Insulin) isosorbide mononitrate 30 mg 30 mg PO DAILY 12/12/23 12/12/23 History tablet,extended release 24 hr melatonin 3 mg tablet 3 mg PO HS 12/12/23 12/12/23 History polyethylene glycol 3350 17 17 g PO DAILY 12/12/23 12/12/23 History gram/dose oral powder potassium chloride 20 mEq 20 meq PO DAILY 12/12/23 12/12/23 History tablet,extended release(part/cryst) rabeprazole 20 mg tablet,delayed 20 mg PO DAILY 12/12/23 12/12/23 History release tamsulosin 0.4 mg capsule 0.4 mg PO HS 12/12/23 12/12/23 History trazodone 150 mg tablet 150 mg PO HS 12/12/23 12/12/23 History furosemide 40 mg tablet 40 mg PO DAILY 30 days #0 tabs 12/13/23 12/12/23 Rx levofloxacin 750 mg tablet 750 mg PO Q48H 5 days #3 tabs 12/13/23 Rx ofloxacin 0.3 % eye drops 1 drp ophthalmic (eye) Q6H 5 days 12/13/23 Rx #5 mL New Prescriptions to Start Prescriptions: Sincere Villatoro ofSincere Leong Allergies Allergy/AdvReac Type Severity Reaction Status Date / Time No Known Allergies Allergy Verified 04/23/23 11:15 Discharge Plan Disposition Patient Disposition: [facility] Intermediate Care Fac Condition: Fair Discharge Order Discharge Orders: Discharge Order (Routine); Ordered 12/13/23 Ordered By: Sincere Regalado Follow up Plan Prescriptions/Medication Reconciliation: New ofloxacin 0.3 % Drops 1 drp ophthalmic (eye) Q6H 5 Days Qty: 5 0RF levofloxacin 750 mg tablet 750 mg PO Q48H 5 Days Qty: 3 0RF Rx Instructions: first dose 7/18/24 Continued carvedilol 6.25 mg tablet 6.25 mg PO BID rabeprazole 20 mg tablet,delayed release (DR/EC) 20 mg PO DAILY isosorbide mononitrate 30 mg tablet extended release 24 hr 30 mg PO DAILY clopidogrel 75 mg tablet 75 mg PO DAILY acetaminophen 650 mg tablet extended release 650 mg PO BID potassium chloride 20 mEq tablet,ER particles/crystals 20 meq PO DAILY tamsulosin 0.4 mg capsule 0.4 mg PO HS trazodone 150 mg tablet 150 mg PO HS gabapentin 100 mg capsule 100 mg PO BID polyethylene glycol 3350 17 gram/dose powder 17 g PO DAILY insulin lispro [Humalog KwikPen Insulin] 100 unit/mL insulin pen See Rx Instructions .ROUTE .COMPLEX Rx Instructions: PER SLIDING SCALE dapagliflozin propanediol [Farxiga] 10 mg tablet 10 mg PO DAILY melatonin 3 mg Tablet 3 mg PO HS Changed furosemide 40 mg tablet 40 mg PO DAILY 30 Days Qty: 0 0RF Discontinued metolazone 5 mg tablet 5 mg PO MOWEFR Problem Reconciliation Problems Reviewed?: Yes Patient Discharge Instructions ACTIVITY: Continue current activity DIET: continue same diet Patient Instructions: DI for Pancreatitis, DI for Chest Pain, DI for Hypotension Providers Primary Care Provider: Provider,Referral Admit Provider: Raza Brooks Attending Provider: Raza Brooks
[2023-12-13] MEDS: CEFTRIAXONE SODIUM 1 GM in 0.9 % SODIUM CHLORIDE 50 ML IV (11:31)
[2023-12-13] MEDS: CLOPIDOGREL 75MG TAB 75 MG PO (11:32)
[2023-12-13] MEDS: CARVEDILOL 6.25MG TABLET 6.25 MG PO (11:32)
[2023-12-13 11:52] LABS: POC Glucose,Bedside 144 (70-110)
[2023-12-13 12:00] VITALS: BP 140/64; PULSE 70; PULSE 80; RESP 17; TEMP 36.6; O2SAT 94
--- NOTE | 2023-12-16 14:27 | EXP.EVENT.NO ---
Urine culture came back resistant to Levaquin. Contacted nurses station at [facility]. Informed them to stop Levaquin and start ceftriaxone 1 g IM x 5 days. Prescription sent to med with his. Results faxed to [facility] at [phone]
== END 2023-12-13 13:45 ==
LOC: ER 17:17 → 2ND 17:26
PROVIDERS: Physician Assistant; Admitting Provider Internal Medicine; Emergency Provider Emergency Medicine; Visit Provider Internal Medicine
DX: N17.9 Acute kidney failure, unspecified (principal); K85.90 Acute pancreatitis without necrosis or infection, unspecified; R07.9 Chest pain, unspecified; N39.0 Urinary tract infection, site not specified; I25.10 Atherosclerotic heart disease of native coronary artery without angina pectoris; I71.21 Aneurysm of the ascending aorta, without rupture; N18.32 Chronic kidney disease, stage 3b; R53.2 Functional quadriplegia; R74.8 Abnormal levels of other serum enzymes; R00.1 Bradycardia, unspecified; I95.9 Hypotension, unspecified; E11.22 Type 2 diabetes mellitus with diabetic chronic kidney disease; I12.9 Hypertensive chronic kidney disease with stage 1 through stage 4 chronic kidney disease, or unspecified chronic kidney disease; Z79.4 Long term (current) use of insulin; Z79.899 Other long term (current) drug therapy
CPT/HCPCS: 36415; 71250; 74176; 80053; 81001; 82962; 83690; 83735; 83880; 84145; 84484; 85025; 85610; 86140; 87086; 87088; 87186; 93005; 93306; 93970; 99285; G0378; J0131; J0696; J1644; J2405